=== PATIENT | male | born 1960 | race Caucasian/White ===

== ENCOUNTER 2019-02-10 04:47 | Emergency (ER) | payer OTHER, SELFPAY ==
[2019-02-10 04:53] VITALS: BP 161/98; PULSE 57; RESP 16; TEMP 37; O2SAT 100; BMI 40.0
--- NOTE | 2019-02-10 05:41 | ED.BACK ---
HPI - Back Pain/Injury General Chief Complaint: Back Pain/Injury Stated Complaint: back pain Time Seen by Provider: 02/10/19 05:25 Source: patient Mode of arrival: Wheelchair Limitations: no limitations History of Present Illness HPI Narrative: 58M nonsmoker with noncontributory medical history presents with his in the chief complaint of severe lumbar pain which has been increasing over the past few days. He denies any specific activity or trauma that may have caused this but states he had been lifting weights on Monday and that night his symptoms started. For the 1st few days he seemed experience relief with Tylenol or Motrin but tonight he is having trouble sleeping and has intensified pain. He states it is better when he rests and worse when he moves. He denies any fever or chills. He takes no blood thinners. He denies associated symptoms such as trouble controlling bowel or bladder, weakness of his lower extremities, numbness in his groin or footdrop. He has no chest pain or shortness of breath. He has no abdominal pain, nausea or vomiting. He denies any dysuria, frequency or urgency. MD Complaint: back pain Onset (ago): day(s) Duration: intermittent Similar Symptoms Previously: Yes Location: lumbar spine Severity: moderate Quality: aching Associated symptoms: denies other symptoms Treatments prior to arrival: NSAIDS and acetaminophen Related Data Home Medications Medication Instructions Recorded Confirmed acetaminophen mg PO #0 06/06/16 ibuprofen 800 mg PO PRN #0 06/06/16 Previous Rx's Medication Instructions Recorded ondansetron [Zofran ODT] 4 mg SUBLINGUAL Q6HP PRN #20 odt 06/08/16 oxycodone-acetaminophen [Percocet] 1 - 2 tab PO Q4HP PRN #30 tab 06/08/16 diazepam [Valium] 5 mg PO BID-QID PRN #10 tab 02/10/19 hydrocodone-acetaminophen 1 tab PO Q4-6H PRN #10 tab 02/10/19 ketorolac 10 mg PO Q6H PRN #14 tab 02/10/19 lidocaine [Lidoderm] 1 patch TOP DAILY #15 each 02/10/19 Allergies Allergy/AdvReac Type Severity Reaction Status Date / Time No Known Drug Allergies Allergy Verified 02/10/19 04:59 Review of Systems Constitutional Constitutional: Denies chills, Denies fatigue, Denies fever(s), Denies frequent falls, Denies lethargy and Denies weakness Eyes Eyes: Denies change in vision, Denies eye discharge, Denies irritation and Denies loss of vision ENT Ears, Nose, Mouth, and Throat: Denies change in voice, Denies dizziness, Denies neck pain, Denies sore throat and Denies throat swelling Cardiovascular Cardiovascular: Denies chest pain, Denies irregular heart rhythm, Denies lightheadedness, Denies palpitations, Denies dyspnea, Denies dyspnea on exertion and Denies orthopnea Respiratory Respiratory: Denies cough, Denies dyspnea, Denies dyspnea on exertion and Denies wheezing Gastrointestinal Gastrointestinal: Denies abdominal pain, Denies change in bowel habits, Denies diarrhea, Denies nausea and Denies vomiting Genitourinary Genitourinary: Denies hematuria, Denies flank pain, Denies urinary incontinence and Denies urinary urgency Musculoskeletal Musculoskeletal: Reports abnormal gait, Reports back pain, Reports limited range of motion, Denies muscle weakness, Denies neck pain, Denies numbness and Denies tingling Integumentary/Breasts Skin/Breast: Denies pruritus, Denies erythema, Denies rash and Denies wounds Neurologic Neurologic: Reports abnormal gait, Denies behavioral changes, Denies confusion, Denies dizziness, Denies frequent falls, Denies loss of vision, Denies numbness, Denies tingling and Denies weakness Psychiatric Psychiatric: Denies anxiety, Denies behavioral changes, Denies confusion, Denies depression, Denies homicidal ideation and Denies suicidal ideation Endocrine Endocrine: Denies fatigue, Denies flushing and Denies palpitations Hematologic/Lymphatic Hematologic/Lymphatic: Denies easy bruising Allergic/Immunologic Allergic/Immunologic: Denies urticaria, Denies throat swelling and Denies wheezing Patient History Social History Smoking Status: Never smoker Smoking Status: Never smoker alcohol intake frequency: 0-2 drinks per day Substance Use Type: does not use Exam Narrative Exam Narrative: GENERAL: [58] year old patient appears stated age. Well-nourished, well-developed patient, in mild distress. In a wheelchair in requiring assistance to stand up due to pain changing position HEAD: Atraumatic. Normocephalic. EYES: Pupils equal round and reactive. Extraocular motions intact. No scleral icterus. No injection or drainage. ENT: Nose without bleeding, purulent drainage. Throat without erythema, tonsillar hypertrophy or exudate. Airway patent. NECK: Trachea midline. Non tender CARDIOVASCULAR: Regular rate and rhythm without murmurs, gallops, or rubs. RESPIRATORY: Clear to auscultation. Breath sounds equal bilaterally. No wheezes, rales, or rhonchi. GASTROINTESTINAL: Abdomen soft, non-tender, nondistended. EXTREMITIES: No edema or joint tenderness. BACK: steam drier tender but free of any obvious external abnormalities. Patient exam notes decreased range of motion and muscle spasm, but no CVA tenderness, or vertebral point tenderness. There are no symptoms of cauda equina such as saddle anesthesia, and decreased reflexes, decreased sensation or strength. NEURO: AOx3. SKIN: No rash or erythema of visible areas Initial Vital Signs Initial Vital Signs: Vital Signs Temperature 98.6 F 02/10/19 04:53 Pulse Rate 57 L 02/10/19 04:53 Respiratory Rate 16 02/10/19 04:53 Blood Pressure 161/98 H 02/10/19 04:53 Pulse Oximetry 100 02/10/19 04:53 Course Course Course Narrative: patient able to stand and feeling better. Multiple etiologies of back pain considered including; Epidural abscess, cauda equina, mass occupying lesion, and other considered Orders Ordered: Discontinued Medications Diazepam (Valium) 5 mg PO NOW ONE Stop: 02/10/19 05:26 Last Admin: 02/10/19 05:45 Dose: 5 mg Documented by: ROSCOE Ketorolac Tromethamine (Toradol) 60 mg IM NOW ONE Stop: 02/10/19 05:26 Last Admin: 02/10/19 05:45 Dose: 60 mg Documented by: ROSCOE Lidocaine (Lidoderm) 1 each TOP NOW ONE Stop: 02/10/19 05:50 Last Admin: 02/10/19 06:02 Dose: 1 each Documented by: ROSCOE Vital Signs Vital signs: Vital Signs - 8 hr 02/10/19 04:53 Temperature 98.6 F Pulse Rate 57 L Respiratory Rate 16 Blood Pressure 161/98 H Pulse Oximetry 100 Discharge Plan Departure Patient Disposition: Home Clinical Impression: Strain of lumbar region Qualifiers: Encounter type: initial encounter Qualified Code(s): S39.012A - Strain of muscle, fascia and tendon of lower back, initial encounter Instructions: DI for Back Spasm Activity Restrictions/Additional Instructions: *You have been diagnosed with [ acute lumbar spasm ] *What to do: *Take medications as directed *Follow up with your primary care provider in 2-3 days, call for an appointment. Let them know you were seen in the Emergency Department and that we ask that you be seen in follow up *Return to ER if you should have any new, worsening or concerning symptoms Prescriptions: New hydrocodone-acetaminophen 5-325 mg tablet 1 tab PO Q4-6H PRN (Reason: pain) Qty: 10 RF: 0 ketorolac 10 mg tablet 10 mg PO Q6H PRN (Reason: pain) Qty: 14 RF: 0 lidocaine [Lidoderm] 5 % adhesive patch,medicated 1 patch TOP DAILY Qty: 15 RF: 0 diazepam [Valium] 5 mg tablet 5 mg PO BID-QID PRN (Reason: muscle spasm) Qty: 10 RF: 0 No Action acetaminophen 325 MG tablet PO Qty: 0 RF: 0 ibuprofen 800 MG tablet 800 mg PO PRNQty: 0 RF: 0 oxycodone-acetaminophen [Percocet] 5 MG/325 MG tablet 1 - 2 tab PO Q4HP PRNQty: 30 RF: 0 ondansetron [Zofran ODT] 4 MG tablet,disintegrating 4 mg Sublingual Q6HP PRNQty: 20 RF: 0
[2019-02-10] MEDS: diazePAM 5 MG TABLET PO (05:45)
[2019-02-10] MEDS: KETOROLAC 60 MG/2 ML VIAL IM (05:45)
[2019-02-10] MEDS: LIDOCAINE PATCH 1 EACH ADH..PATCH TOP (06:02)
[2019-02-10 07:16] VITALS: BP 143/78; PULSE 51; RESP 18; O2SAT 99
== END 2019-02-10 07:20 | disposition home or self-care (01) ==
PROVIDERS: Emergency Provider Emergency Medicine
DX: S39.012A Strain of muscle, fascia and tendon of lower back, initial encounter (principal); X50.0XXA Overexertion from strenuous movement or load, initial encounter
CPT/HCPCS: 96372; 99282; 99283; J1885

== ENCOUNTER → 2021-06-11 08:02 | Outpatient (CLI) | payer OTHER, SELFPAY ==
--- NOTE | 2021-06-11 08:07 | DI.MRI.S_ITS ---
PROCEDURE: MR KNEE LT WO CON INDICATIONS: PAIN IN LEFT KNEE TECHNIQUE: Noncontrast sagittal PD fast spin echo and T2 fast spin echo with fat saturation, sagittal 3-D FLASH with fat saturation; coronal T1 spin echo and PD fast spin echo with fat saturation, and axial PD fast spin echo with fat saturation through the knee. COMPARISON: [facility], MR, MR KNEE RT WO CON, 06/11/2021, 8:55. FINDINGS: Image quality: Excellent. Menisci: The medial and lateral menisci demonstrate normal morphology and internal signal. The meniscal root ligaments appear intact. Cruciate ligaments: Myxoid degenerative changes are noted in anterior cruciate ligament. No ACL rupture. PCL is intact.. Medial structures: The medial collateral ligament appears intact. The posterior oblique ligament, semimembranosus tendon insertions, oblique popliteal ligament, and meniscocapsular junction appear intact. Visualized portions of the pes anserinus tendons appear normal. No abnormal bursal fluid. Lateral structures: The lateral collateral ligament, long and short heads of the biceps femoris tendon appear intact. The popliteus tendon appears normal; the popliteofibular ligament appears intact. The posterosuperior and anteroinferior popliteomeniscal fascicles appear intact. The arcuate and fabellofibular ligaments appear intact, on either side of the lateral inferior geniculate artery. Iliotibial band appears normal. Anterior structures: Distal quadriceps tendinosis at its superior patellar insertion is seen. Tendinosis involving proximal to midportion of patellar tendon is also seen. Patellar alignment is normal. No femoral trochlear dysplasia or ventral trochlear prominence. No edema in the infrapatellar fat pad. Bones and cartilage: There is no fracture or dislocation. [id number] tricompartmental osteoarthritis and chondromalacia is seen most prominent involving medial femoral tibial compartment. Joint space: There is small joint fluid. No Santana's cyst. Normal appearing synovial plicae are incidentally noted. IMPRESSION: 1. 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 No fracture or dislocation. Small joint effusion. 2. No evidence of focal meniscal tear. Myxoid degenerative changes within anterior cruciate ligament. No ACL rupture. PCL is intact. 3. Distal quadriceps tendinosis. Tendinosis involving proximal to midportion of patellar tendon. Dictated by: Jame Estrada M.D. on 06/11/2021 at 10:13 Approved by: Jame Estrada M.D. on 06/11/2021 at 10:15
--- NOTE | 2021-06-11 08:07 | DI.MRI.S_ITS ---
PROCEDURE: MR KNEE RT WO CON INDICATIONS: PAIN RIGHT KNEE TECHNIQUE: Noncontrast sagittal PD fast spin echo and T2 fast spin echo with fat saturation, sagittal 3-D FLASH with fat saturation; coronal T1 spin echo and PD fast spin echo with fat saturation, and axial PD fast spin echo with fat saturation through the knee. COMPARISON: None. FINDINGS: Image quality: Excellent. Menisci: The medial and lateral menisci demonstrate normal morphology and internal signal. The meniscal root ligaments appear intact. Cruciate ligaments: The anterior and posterior cruciate ligaments appear intact. Medial structures: The medial collateral ligament appears intact. The posterior oblique ligament, semimembranosus tendon insertions, oblique popliteal ligament, and meniscocapsular junction appear intact. Visualized portions of the pes anserinus tendons appear normal. No abnormal bursal fluid. Lateral structures: The lateral collateral ligament, long and short heads of the biceps femoris tendon appear intact. The popliteus tendon appears normal; the popliteofibular ligament appears intact. The posterosuperior and anteroinferior popliteomeniscal fascicles appear intact. The arcuate and fabellofibular ligaments appear intact, on either side of the lateral inferior geniculate artery. Iliotibial band appears normal. Anterior structures: Distal quadriceps tendinosis at its superior patellar insertion is seen. Proximal patellar tendinosis and low-grade intrasubstance partial-thickness tear at its inferior patellar insertion is also noted. No full-thickness tendon rupture.. Patellar alignment is normal. No femoral trochlear dysplasia or ventral trochlear prominence. No edema in the infrapatellar fat pad. Bones and cartilage: No fracture or dislocation. There is moderate grade chondromalacia patella involving lateral facet of patella cartilage with underlying tiny 2-3 mm osteochondral injuries. [id number] osteoarthritis and chondromalacia in medial femoral tibial compartment is also seen. Joint space: There is small amount of joint fluid. No Santana's cyst. Normal appearing synovial plicae are incidentally noted. IMPRESSION: 1. Distal quadriceps tendinosis. Proximal patellar tendinosis and low-grade partial-thickness tear. No full-thickness tendon rupture. 2. 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 Mild to moderate osteoarthritis and chondromalacia in medial femoral tibial compartment. No fracture or dislocation. 3. Cruciate ligaments are intact. 4. No evidence of focal meniscal tear. Dictated by: Jame Estrada M.D. on 06/11/2021 at 10:09 Approved by: Jame Estrada M.D. on 06/11/2021 at 10:12
== END ==
PROVIDERS: PCP Family Medicine; Referring Provider Family Medicine; Visit Provider Family Medicine
DX: M22.41 Chondromalacia patellae, right knee (principal); S76.111A Strain of right quadriceps muscle, fascia and tendon, initial encounter; M17.0 Bilateral primary osteoarthritis of knee; M94.262 Chondromalacia, left knee; M25.462 Effusion, left knee; M25.562 Pain in left knee; M25.561 Pain in right knee
CPT/HCPCS: 73721

== ENCOUNTER 2022-01-11 17:22 | Emergency (ER) | payer OTHER, SELFPAY ==
[2022-01-11 18:16] VITALS: BP 159/85; PULSE 45; RESP 16; TEMP 36.4; O2SAT 100; BMI 30.2
--- NOTE | 2022-01-11 18:26 | DI.RAD.S_ITS ---
PROCEDURE: XR ELBOW LT MIN 3V INDICATIONS: Injury TECHNIQUE: 3 views of the elbow were acquired. COMPARISON: None. FINDINGS: Bones: No fractures or dislocations. No suspicious bony lesions. Soft tissues: There is a small elbow joint effusion. No suspicious soft tissue calcifications. IMPRESSION: 1. No fracture or dislocation. 2. Small elbow joint effusion. Dictated by: Roberto León M.D. on 01/11/2022 at 20:56 Approved by: Roberto León M.D. on 01/11/2022 at 20:57
--- NOTE | 2022-01-11 18:59 | ED.UPPEXIN ---
HPI - Extremity Injury (Upper) <Aylin Arthur PA-C - Last Filed: 01/11/22 20:47> General Chief Complaint: Extremity Injury, Upper Stated Complaint: left elbow injury Time Seen by Provider: 01/11/22 18:22 Source: patient Mode of arrival: Ambulatory History of Present Illness HPI narrative: 61-year-old male presents to the ED status post a left elbow injury sustained just prior to arrival. Patient states that he was trying to lift a large screen TV at home to hang it up, when he felt the weight of the TV on his left forearm cause pain in his elbow and states that he heard a snap. Patient states that since then he has had some tingling in his left 5th digit, pain in the elbow when he tries to rotate his forearm. Patient states that he has no pain if he keeps his arm adducted towards his torso. Patient has full range of motion. States he has no injuries or pain in his shoulder, wrist or hand. Patient denies numbness, weakness. Related Data Home Medications Medication Instructions Recorded Confirmed acetaminophen 325 mg tablet mg PO ##0 06/06/16 ibuprofen 800 mg tablet 800 mg PO PRN ##0 06/06/16 Previous Rx's Medication Instructions Recorded ondansetron 4 mg disintegrating 4 mg sublingual Q6HP PRN ##20 06/08/16 tablet (Zofran ODT) oxycodone-acetaminophen 5 mg-325 1 - 2 tab PO Q4HP PRN #30 tabs 06/08/16 mg tablet (Percocet) diazepam 5 mg tablet (Valium) 5 mg PO BID-QID PRN muscle spasm 02/10/19 #10 tabs hydrocodone 5 mg-acetaminophen 325 1 tab PO Q4-6H PRN pain #10 tabs 02/10/19 mg tablet ketorolac 10 mg tablet 10 mg PO Q6H PRN pain #14 tabs 02/10/19 lidocaine 5 % topical patch 1 patch topical DAILY #15 ea 02/10/19 (Lidoderm) Allergies Allergy/AdvReac Type Severity Reaction Status Date / Time No Known Drug Allergies Allergy Verified 01/11/22 18:21 Review of Systems <Aylin Arthur PA-C - Last Filed: 01/11/22 20:47> Review of Systems ROS Unobtainable: All systems reviewed & are unremarkable except as noted in HPI and below Constitutional Constitutional: Denies chills, Denies fatigue, Denies fever(s), Denies frequent falls, Denies lethargy and Denies weakness Eyes Eyes: Denies change in vision, Denies eye discharge, Denies irritation and Denies loss of vision ENT Ears, Nose, Mouth, and Throat: Denies change in voice, Denies dizziness, Denies neck pain, Denies sore throat and Denies throat swelling Cardiovascular Cardiovascular: Denies chest pain, Denies irregular heart rhythm, Denies lightheadedness, Denies palpitations, Denies dyspnea, Denies dyspnea on exertion and Denies orthopnea Respiratory Respiratory: Denies cough, Denies dyspnea, Denies dyspnea on exertion and Denies wheezing Gastrointestinal Gastrointestinal: Denies abdominal pain, Denies change in bowel habits, Denies diarrhea, Denies nausea and Denies vomiting Genitourinary Genitourinary: Denies hematuria, Denies flank pain, Denies urinary incontinence and Denies urinary urgency Musculoskeletal Musculoskeletal: Denies back pain, Denies muscle weakness, Denies neck pain, Denies numbness and Denies tingling Comments: Left elbow pain Integumentary/Breasts Skin/Breast: Denies pruritus, Denies erythema, Denies rash and Denies wounds Neurologic Neurologic: Denies behavioral changes, Denies confusion, Denies dizziness, Denies frequent falls, Denies loss of vision, Denies numbness, Denies tingling and Denies weakness Psychiatric Psychiatric: Denies anxiety, Denies behavioral changes, Denies confusion, Denies depression, Denies homicidal ideation and Denies suicidal ideation Endocrine Endocrine: Denies fatigue, Denies flushing and Denies palpitations Hematologic/Lymphatic Hematologic/Lymphatic: Denies easy bruising Allergic/Immunologic Allergic/Immunologic: Denies urticaria, Denies throat swelling and Denies wheezing Patient History <Aylin Arthur PA-C - Last Filed: 01/11/22 20:47> Social History Smoking Status: Never smoker Smoking Status: Never smoker alcohol intake frequency: 0-2 drinks per day Substance Use Type: does not use Exam <Aylin Arthur PA-C - Last Filed: 01/11/22 20:47> Narrative Exam Narrative: Const General:?cooperative, healthy appearing and comfortable HENVA Head:?normal to inspection Ears:?hearing grossly normal bilaterally Nose:?external nose normal Face and sinus:?normal facial exam and sinuses nontender Mouth:?oral mucosae normal Throat:?posterior oropharynx normal Eyes General:?appearance normal, both eyes and all related structures Neck Neck:?normal visual inspection and no lymphadenopathy noted Resp Effort & Inspection:?normal respiratory effort Auscultation:?clear to auscultation bilaterally Cardio Rate:?regular rate Rhythm:?regular rhythm Musculoskeletal No tenderness to palpation of the left elbow. Full range of motion. Patient expresses pain when rotating his forearm. Strength and sensation intact. No deformity, swelling, bruising visualized on exam. Patient appears neurovascularly intact. Neuro General:?patient alert, patient awake and patient oriented x3 Initial Vital Signs Initial Vital Signs: Vital Signs Temperature 97.6 F 01/11/22 18:16 Pulse Rate 45 L 01/11/22 18:16 Respiratory Rate 16 01/11/22 18:16 Blood Pressure 159/85 H 01/11/22 18:16 Pulse Oximetry 100 01/11/22 18:16 Oxygen Delivery Method 01/11/22 18:16 <Linda Mac MD - Last Filed: 01/12/22 18:12> Initial Vital Signs Initial Vital Signs: Vital Signs Temperature 97.6 F 01/11/22 18:16 Pulse Rate 45 L 01/11/22 18:16 Respiratory Rate 16 01/11/22 18:16 Blood Pressure 159/85 H 01/11/22 18:16 Pulse Oximetry 100 01/11/22 18:16 Oxygen Delivery Method 01/11/22 18:16 Course <Aylin Arthur PA-C - Last Filed: 01/11/22 20:47> Orders Ordered: ED Orders 01/11/22 18:26 XR elbow LT min 3V Stat Vital Signs Vital signs: Vital Signs - 8 hr 01/11/22 18:16 Temperature 97.6 F Pulse Rate 45 L Respiratory Rate 16 Blood Pressure 159/85 H Pulse Oximetry 100 Oxygen Delivery Method Room Air <Linda Mac MD - Last Filed: 01/12/22 18:12> Orders Ordered: ED Orders 01/11/22 18:26 XR elbow LT min 3V Stat Vital Signs Vital signs: Vital Signs - 8 hr 01/11/22 18:16 Temperature 97.6 F Pulse Rate 45 L Respiratory Rate 16 Blood Pressure 159/85 H Pulse Oximetry 100 Oxygen Delivery Method Room Air MDM - Extremity Injury (Upper) <Aylin Arthur PA-C - Last Filed: 01/11/22 20:47> [facility] Narrative Medical decision making narrative: 61-year-old male presents to the ED status post a left elbow injury sustained just prior to arrival. Concern for fracture/dislocation versus musculoskeletal sprain/strain. Will obtain x-rays and re-evaluate. Patient's x-ray does not show obvious fracture/dislocation. Radiology read is delayed and not back yet. Discharging patient home with a sling, will call patient if any pertinent finding on x-ray. ED return precautions were discussed with patient. Patient advised to follow-up with PCP. Patient verbalized understanding. Discharge Plan Departure Patient Disposition: Home Clinical Impression: Elbow injury Instructions: DI for Elbow Sprain Activity Restrictions/Additional Instructions: You were evaluated in the ED today for a elbow injury. Your x-ray did not show any obvious fractures or dislocations, however it is still pending read by the radiologist. We will call to inform you if there is a fracture or dislocation. Meanwhile, we will treat it as a elbow sprain, fit your elbow in us sling, have you follow-up with your PCP as soon as possible. You may continue to take ibuprofen, Tylenol for your pain. Return to the ED if you note any numbness, weakness, tingling. Prescriptions: No Action acetaminophen 325 MG tablet PO Qty: 0 ibuprofen 800 MG tablet 800 mg PO PRNQty: 0 oxycodone-acetaminophen [Percocet] 5 MG/325 MG tablet 1 - 2 tab PO Q4HP PRNQty: 30 0RF ondansetron [Zofran ODT] 4 MG tablet,disintegrating 4 mg Sublingual Q6HP PRNQty: 20 0RF hydrocodone-acetaminophen 5-325 mg tablet 1 tab PO Q4-6H PRN (Reason: pain) Qty: 10 0RF ketorolac 10 mg tablet 10 mg PO Q6H PRN (Reason: pain) Qty: 14 0RF lidocaine [Lidoderm] 5 % adhesive patch,medicated 1 patch TOP DAILY Qty: 15 0RF Rx Instructions: leave on most painful area for 12 hrs diazepam [Valium] 5 mg tablet 5 mg PO BID-QID PRN (Reason: muscle spasm) Qty: 10 0RF Referrals: Tyrese Boston MD [Primary Care Provider] - Visit Report Forms: Patient Portal/API <Linda Mac MD - Last Filed: 01/12/22 18:12> Cosign ED Attending Cosignature Attestation: I was immediately available in the department for consultation throughout this patient's visit. I agree with documentation as above. Linda Mac MD
[2022-01-11 21:00] VITALS: BP 155/84; PULSE 49; RESP 16; O2SAT 100
== END 2022-01-11 21:01 | disposition home or self-care (01) ==
PROVIDERS: Emergency Provider Student in an Organized Health Care Education/Training Program; PCP Family Medicine
DX: S59.902A Unspecified injury of left elbow, initial encounter (principal); X50.0XXA Overexertion from strenuous movement or load, initial encounter
CPT/HCPCS: 73080; 99283

== ENCOUNTER → 2023-10-19 07:06 | Outpatient (CLI) | payer OTHER, SELFPAY ==
--- NOTE | 2023-10-19 07:08 | DI.MRI.S_ITS ---
PROCEDURE: MR SHOULDER LT WO CON INDICATIONS: PAIN LEFT SHLD,STRAIN OF MUSCLE,FASCIA,TEND BICEPS TECHNIQUE: Noncontrast oblique coronal T2 fast spin echo with fat saturation, oblique sagittal T1 spin echo and T2 fast spin echo with fat saturation, axial T1 spin echo and T2 fast spin echo with fat saturation through the shoulder. COMPARISON: None. FINDINGS: Image quality: Excellent. Rotator cuff: Low-grade articular and bursal surface partial thickness tear involving distal supraspinatus at its insertion on the humeral head is seen extending to musculotendinous junction. Distal infraspinatus tendinosis is seen. Low-grade intrasubstance partial-thickness tear involving distal subscapularis is noted. No full-thickness rotator cuff tendon rupture. Sagittal images demonstrate no significant rotator cuff muscle atrophy. Bones and bursae: No bone marrow contusions or fractures. Moderate acromioclavicular joint osteoarthritic changes are seen with joint space narrowing, subchondral sclerosis and prominent downward osteophyte formation depressing the musculotendinous junction of supraspinatus. Type 1 acromion without an os acromiale. Small amount of joint fluid and subacromial subdeltoid bursal fluid is present, no gross loose bodies. Capsule and soft tissues: There is fraying of superior anterior labrum with T2 hyperintense signal suggestive of superior anterior glenoid labral tear. The long head of the biceps tendon demonstrates normal location and morphology. The rotator interval appears normal, without fibrosis. The coracohumeral ligament is normal in thickness. IMPRESSION: 1. Low-grade articular and bursal surface partial thickness tear involving distal supraspinatus extending to musculotendinous junction. Distal infraspinatus tendinosis. Low-grade intrasubstance partial-thickness tear involving distal subscapularis. No full-thickness rotator cuff tendon rupture. 2. Moderate acromioclavicular joint osteoarthritis. No fracture or dislocation. Small amount of joint fluid and subacromial subdeltoid bursal fluid, no loose bodies. 3. Suggestion of superior anterior left glenoid labral tear. Dictated by: Jame Estrada M.D. on 10/19/2023 at 13:48 Approved by: Jame Estrada M.D. on 10/19/2023 at 13:51
== END ==
LOC: MRI 07:07
PROVIDERS: PCP Family Medicine; Referring Provider Family Medicine; Visit Provider Family Medicine
DX: S46.112A Strain of muscle, fascia and tendon of long head of biceps, left arm, initial encounter (principal); M75.112 Incomplete rotator cuff tear or rupture of left shoulder, not specified as traumatic; M19.012 Primary osteoarthritis, left shoulder; M25.512 Pain in left shoulder
CPT/HCPCS: 73221